=== PATIENT | female | born 1990 | race Caucasian/White ===

== ENCOUNTER 2017-11-09 14:33 | Emergency (ER) | payer BC, OTHER ==
[~2017-11-09] VITALS: Ht 167.6 cm; Wt 73.0 kg
[2017-11-09 14:43] VITALS: BP_SYST 158
--- NOTE | 2017-11-09 14:47 | NUR ---
Pt c/o neck pain upon awakening and thinks she may have slept wrong. Pt has a hx of "flare ups" of neck pain x 7 years. Pt denies neck trauma or injury, no neuro deficits noted.
--- NOTE | 2017-11-09 14:47 | NUR ---
Patient to ER bed 4 to gown for evaluation. Side rails up. Report given to Ang GAMING.
--- NOTE | 2017-11-09 14:49 | NUR ---
ER Dr. Ortiz at bedside examining patient.
--- NOTE | 2017-11-09 14:53 | NUR ---
Pt ambulated to radiology in stable condition.
[2017-11-09] MEDS ORDERED: LORazepam 2 MG/ML VIAL (FOR ER USE) IVP ONE (15:00)
[2017-11-09] MEDS ORDERED: ONDANSETRON HCL 4 MG/2 ML VIAL IVP ONE (15:00)
[2017-11-09] MEDS ORDERED: MORPHINE 4 MG/ML INJ. SYRINGE IVP ONE (15:00)
--- NOTE | 2017-11-09 15:00 | NUR ---
Pt instructed to call for a ride prior to being medicated with Ativan and Morphine. She states that her sister is going to pick her up. Pt to wait in ER bed 4 until she arrives.
[2017-11-09 15:52] VITALS: BP_SYST 135
--- NOTE | 2017-11-09 15:52 | NUR ---
Patient given written and verbal discharge instructions and verbalizes understanding. ER MD discussed with patient the results and treatment provided. Patient in stable condition. ID arm band removed. IV catheter removed intact and dressing applied, no active bleeding. Rx of Ativan and Naprosyn given. Patient educated on pain management and to follow up with PMD. Pain Scale 0/10. Opportunity for questions provided and answered. Medication side effect fact sheet provided.
== END 2017-11-09 15:52 | disposition home or self-care (01) ==
LOC: SED 14:33
DX: S16.1XXA Strain of muscle, fascia and tendon at neck level, initial encounter (principal); M43.6 Torticollis; X58.XXXA Exposure to other specified factors, initial encounter; Y93.89 Activity, other specified; Y92.89 Other specified places as the place of occurrence of the external cause; Y99.8 Other external cause status
CPT/HCPCS: 72040; 96374; 96375; 99284; J2060; J2270; J2405